=== PATIENT | female | born 1980 | race Two or more races ===

== ENCOUNTER → 2019-10-15 | Outpatient (CLI) | payer OTHER ==
[2019-10-15 13:32] VITALS: BP 112/83
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
== END ==
LOC: RDC 12:46
PROVIDERS: ATTEND Nurse Practitioner Family
DX: Z20.828 Contact with and (suspected) exposure to other viral communicable diseases (principal); R05 Cough; R06.02 Shortness of breath; J02.9 Acute pharyngitis, unspecified; M79.10 Myalgia, unspecified site; R51 Headache; R19.7 Diarrhea, unspecified; Z87.891 Personal history of nicotine dependence
CPT/HCPCS: 87070; 87880; 87635; C9803; 99201